=== PATIENT | female | born 1985 | race Caucasian/White ===

== ENCOUNTER 2018-11-11 19:46 | Emergency (ER) | payer OTHER ==
[~2018-11-11] VITALS: Ht 170.2 cm; Wt 74.8 kg
[2018-11-11 19:50] VITALS: BP 124/80
--- NOTE | 2018-11-11 19:50 | NUR ---
TO BED # 09 AMBULATORY
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
[2018-11-11 21:20] VITALS: BP 124/80
== END 2018-11-11 21:19 | disposition home or self-care (01) ==
LOC: MED 19:46
DX: S80.01XA Contusion of right knee, initial encounter (principal); M25.531 Pain in right wrist; R07.89 Other chest pain; V89.2XXA Person injured in unspecified motor-vehicle accident, traffic, initial encounter; Y93.89 Activity, other specified; Y92.410 Unspecified street and highway as the place of occurrence of the external cause; Y99.8 Other external cause status
CPT/HCPCS: 99283